=== PATIENT | male | born 1940 | race Caucasian/White ===

== ENCOUNTER 2023-09-12 16:46 | Inpatient (IN) | payer OTHER, SELFPAY ==
[2023-09-12] VITALS (8 sets, daily range): BP systolic 115–149; BP diastolic 72–91; BMI 25.3
--- NOTE | 2023-09-12 11:20 | ED.GENMED ---
History of Present Illness
<Oanh Burgos PA-C - Last Filed: 09/12/23 15:42>
General
Chief Complaint: Abdominal Symptoms
Source: patient
Exam Limitations: none
Time Seen by Provider: 09/12/23 11:07
Nursing documentation reviewed up to this point in time: agreed with
Travel History
Have you had any contact with someone who has COVID-19?: No
Do you have any symptoms of coronavirus? Fever > 100 degrees, chills, cough, shortness of breath, sore throat, loss of taste or smell, muscle aches, or headache?: No
History of Present Illness
History of Present Illness:
82-year-old male with past medical history of CAD, hypertension, diabetes presenting emergency department today with diffuse abdominal pain, nausea, vomiting for the past 4 days. Patient states that on Monday, he had food poisoning and ate
something that upset his stomach and he subsequently had persistent vomiting. Patient states that he thought would go away within the first 24 hours, however he woke up on Monday and his vomiting persisted but he did feel little bit better.
Patient states that he has been sleeping on somebody's symptoms are not been going away. Patient states that he is not able to eat anything without vomiting. Patient denies any chest pain, shortness of breath. Patient states that today, he feels
even better and did take some Pepto-Bismol to help with his abdominal pain. Patient denies any diarrhea, constipation. Patient denies any dysuria, back pain. Patient was sent here from PCP office after being evaluated and was sent for concerns of
tachycardia and EKG changes. Patient is also concerned about his abdomen being distended, he states that normally does not like this. He denies any past abdominal surgeries. Patient states that he does not know why he is here.
Past History
<Oanh Burgos PA-C - Last Filed: 09/12/23 15:42>
Past History
ED Past Medical History: HTN, MA (October of this year with cardiac catheterization.) and Other (Attention, glaucoma )
ED Past Surgical History: Other (vasectomy)
Social History
Tobacco: Smoker
Alcohol: None
Drug: None
Personal: Single
Living: alone
Employment: Retired
Family History
Family History: Early CAD (father--other RF (obese, tob, alcoholic))) and Other (Alcoholic father )
Review of Systems
<Oanh Burgos PA-C - Last Filed: 09/12/23 15:42>
Review of Systems
All Other Systems: ROS reviewed and negative except as documented in HPI and ROS
Phy Exam
<Oanh Burgos PA-C - Last Filed: 09/12/23 15:42>
Physical Exam
Physical Exam:
Vitals: Patient is tachycardic, otherwise vital signs are stable
General: Patient is well-appearing no acute distress
Skin: Warm and dry, no rashes or lesions
Head: Normocephalic, atraumatic
Cardiac: Patient has a tachycardic rate and irregular rhythm, no obvious murmurs heard. No tenderness palpation of the external chest wall.
Peripheral vascular: No lower extremity swelling, 2+ dorsalis pedis pulses bilaterally.
Pulm: Normal respiratory effort, no wheezes, rales, rhonchi
Abdomen: Abdomen is distended, non-tympanic to percussion, mild tenderness diffusely, normoactive bowel sounds.
Neuro: Patient AAOx3. CN II-XII intact. No focal neurologic deficits.
Course
<Oanh Burgos PA-C - Last Filed: 09/12/23 15:42>
Orders/Labs/Results
Orders:
Orders
09/12/23 11:08
Electrocardiogram (*1) Urgent
Reason for Study: Abdominal Pain
EKG- Treatment ONCE
IV Insert/Care/Rem.- Treatment PRN
09/12/23 11:25
Complete Blood Count/With Diff Urgent
Comprehensive Metabolic Panel Urgent
Lipase Urgent
Troponin I Urgent
09/12/23 11:38
0.9% Sodium Chloride 500 ml [Nss] 500 ml IV BOLUS
US Abdomen Complete/Upper Urgent
Comment:
Reason For Exam: upper abdominal pain and distension
09/12/23 13:26
Hida Scan [NM Hepatobiliary (hida)] Urgent
Comment:
Reason For Exam: Cholecystitis
09/12/23 15:36
Morphine Sulfate 2 mg .ROUTE .STK-MED ONE
Abnormal Lab Results
09/12/23
11:25
RBC 4.05 L 10^6/uL
(4.70-6.10)
MCV 100.0 H fL
(80.0-94.0)
MCH 33.6 H pg
(27.0-31.0)
MPV 11.4 H fL
(7.4-10.4)
Abs Immat Gran (auto) 0.1 H 10^3/uL
(0-0.05)
Absolute Neuts (auto) 7.7 H 10^3/uL
(1.4-6.5)
Absolute Lymphs (auto) 0.8 L 10^3/uL
(1.2-3.4)
Absolute Monos (auto) 0.8 H 10^3/uL
(0.1-0.6)
Neutrophils % 82.1 H %
(42.2-75.2)
Lymphocytes % 8.4 L %
(20.5-51.1)
Sodium 133 L mmol/L
(135-145)
BUN 24 H mg/dl
(9-20)
Glucose 175 H mg/dl
(70-99)
Total Bilirubin 3.7 H mg/dl
(0.2-1.3)
ALT 74 H U/L
(0-50)
Alkaline Phosphatase 151 H U/L
(38-126)
Troponin I 0.097 H* ng/ml
09/12/23 11:25
09/12/23 11:25
Vital Signs
Initial and Last Documented VS:
Initial Vital Signs
Temp Pulse Resp BP Pulse Ox
98.6 F 109 16 125/91 96
09/12/23 10:35 09/12/23 10:35 09/12/23 10:35 09/12/23 10:35 09/12/23 10:35
Last Documented Vital Signs
Temp Pulse Resp BP Pulse Ox
98.6 F 97 19 129/85 95
09/12/23 10:35 09/12/23 13:45 09/12/23 13:45 09/12/23 11:34 09/12/23 13:45
<Aubrey Emanuel MD - Last Filed: 09/12/23 16:14>
Orders/Labs/Results
Orders:
Orders
09/12/23 11:08
Electrocardiogram (*1) Urgent
Reason for Study: Abdominal Pain
EKG- Treatment ONCE
IV Insert/Care/Rem.- Treatment PRN
09/12/23 11:25
Complete Blood Count/With Diff Urgent
Comprehensive Metabolic Panel Urgent
Lipase Urgent
Troponin I Urgent
09/12/23 11:38
0.9% Sodium Chloride 500 ml [Nss] 500 ml IV BOLUS
US Abdomen Complete/Upper Urgent
Comment:
Reason For Exam: upper abdominal pain and distension
09/12/23 13:26
Hida Scan [NM Hepatobiliary (hida)] Urgent
Comment:
Reason For Exam: Cholecystitis
09/12/23 15:36
Morphine Sulfate 2 mg .ROUTE .STK-MED ONE
Abnormal Lab Results
09/12/23
11:25
RBC 4.05 L 10^6/uL
(4.70-6.10)
MCV 100.0 H fL
(80.0-94.0)
MCH 33.6 H pg
(27.0-31.0)
MPV 11.4 H fL
(7.4-10.4)
Abs Immat Gran (auto) 0.1 H 10^3/uL
(0-0.05)
Absolute Neuts (auto) 7.7 H 10^3/uL
(1.4-6.5)
Absolute Lymphs (auto) 0.8 L 10^3/uL
(1.2-3.4)
Absolute Monos (auto) 0.8 H 10^3/uL
(0.1-0.6)
Neutrophils % 82.1 H %
(42.2-75.2)
Lymphocytes % 8.4 L %
(20.5-51.1)
Sodium 133 L mmol/L
(135-145)
BUN 24 H mg/dl
(9-20)
Glucose 175 H mg/dl
(70-99)
Total Bilirubin 3.7 H mg/dl
(0.2-1.3)
ALT 74 H U/L
(0-50)
Alkaline Phosphatase 151 H U/L
(38-126)
Troponin I 0.097 H* ng/ml
09/12/23 11:25
09/12/23 11:25
Vital Signs
Initial and Last Documented VS:
Initial Vital Signs
Temp Pulse Resp BP Pulse Ox
98.6 F 109 16 125/91 96
09/12/23 10:35 09/12/23 10:35 09/12/23 10:35 09/12/23 10:35 09/12/23 10:35
Last Documented Vital Signs
Temp Pulse Resp BP Pulse Ox
98.6 F 97 19 129/85 95
09/12/23 10:35 09/12/23 13:45 09/12/23 13:45 09/12/23 11:34 09/12/23 13:45
<Oanh Burgos PA-C - Last Filed: 09/12/23 15:42>
MDM/Problems Addressed
Differential Diagnosis Includes:
Differentials include ACS, pancreatitis, small bowel obstruction, IBS, perforated viscus
MDM/Problems Addressed:
Abdominal pain
nausea and vomiting
Chronic conditions affecting care: DM, HTN and CAD
Acute Exacerbation and/or Progression of Chronic Illness: DM, HTN and CAD
<URIAH Layton Last Filed: 09/12/23 15:42>
*Pulse Oximetry
Patient hypoxic: no
*Critical Care Note
Total Time (30-74mins, 75-104mins- exclusive of procedures): Not Applicable
Data Reviewed
Review of Other/Old Records Reveals: Records (Reviewed ER physician documentation from 07/03/2022) and Discharge Summary (Reviewed discharge summary from 07/04/2022)
Source: patient and records
<URIAH Layton Last Filed: 09/12/23 15:42>
Patient Management
Escalation/DeEscalation of care consider admission/obs:
82-year-old male with past medical history of CAD, hypertension, diabetes presenting emergency department today with diffuse abdominal pain, nausea, vomiting for the past 4 days. Patient was sent here by PCP who was concerned about possible cardiac
causes to his symptoms. Here Emergency Department, patient is well-appearing and does not have significant tenderness on his abdominal exam. His troponin is elevated at 0.097 but his EKG today is largely unchanged from previous studies. His total
bilirubin is elevated and his ultrasound demonstrates patient was seen acute cholecystitis. General surgeon on site property manager may recommend IR cholecystostomy tube but patient must be cleared by cardiology and be fully risk assessed considering his troponin
elevation EKG changes. Patient will be admitted to hospitalist for risk assessment.
ED Attending Note
<Oanh Burgos PA-C - Last Filed: 09/12/23 15:42>
-
Portions of this chart may have been created with voice recognition software.� Occasional wrong word or��sound alike� substitutions may have occurred due to the inherent limitations of voice recognition software.
<Aubrey Emanuel MD - Last Filed: 09/12/23 16:14>
ED Attending Note
Patient seen and examined by attending physician: Yes
ED Attending Note:
Patient presents to ED secondary to persistent nausea and vomiting after consuming home-cooked cornbread 3 days ago. Denies fever or chills. Patient reports abdominal distention with mild discomfort. Patient has had normal bowel movements.
Denies trauma. Denies chest pain. Denies shortness of breath. Denies recent change in medications. Patient states that he had similar episode 2 years ago when he had 'food poisoning'.
Physical Exam
General: mild distress, not acutely ill. afebrile
Head: nc/at. eomi
Neck: supple. no meningeal signs.
Heart: s1/s2 regular rate and rhythm, systolic ejection murmur. equal radial pulses.
Lungs: no acute respiratory distress. clear bilaterally
Abdomen: normal bowel sounds. mild distention noted with mild upper abdominal tenderness to palpation.
Neuro: alert and oriented. no focal neurological deficits
Skin: no rash
Psychiatric: well kept. interactive and cooperative
Extremities: no edema. no calf tenderness.
Ultrasound report reviewed and discussed with Dr. Wright, general surgery.
Patient evaluated in ED by Dr. Wright who recommends patient be admitted to the hospital service for treatment, including potential cholecystostomy tube placement as well as cardiology evaluation.
Discharge Plan
Departure
Patient Disposition: Admit
Date of Disposition: 09/12/23
Time of Disposition: 14:23
Admit to: Med/Surg
Presentation/result/management discussed w/ accepting MD/DO: Hospitalist
Patient with high blood pressure during this ER visit?: Yes
Condition: Fair
Discharge Problem:
Acute cholecystitis
Prescriptions:
No Action
aspirin 81 MG tablet,delayed release (DR/EC)
81 mg PO DAILY
timolol maleate (PF) [Timoptic Ocudose (PF)] 1 EACH dropperette
1 drp BOTH EYES DAILY
losartan 50 mg Tablet
50 mg PO DAILY
atorvastatin 40 mg Tablet
40 mg PO DAILY
metformin 500 mg Tablet
500 mg PO TID
icosapent ethyl 1 gram Capsule
2 g PO BID
brinzolamide 1 % Drops,Suspension
1 drp BOTH EYES TID
bimatoprost 0.03 % Drops
1 drp BOTH EYES QPM
Rhopressa 0.02 % Drops
1 drp BOTH EYES QPM
metoprolol tartrate 25 MG tablet
12.5 mg PO BID Qty: 0 0RF
Theragen Tablet
1 tab PO DAILY
Referrals:
Taran Hair PA-C [Family Provider] -
Interventions
Interventions:
*Risk Screen - Suicide Last Done: 09/12/23 11:21
*General Assessment Last Done: 09/12/23 11:21
*Neglect/Abuse Screening Last Done: 09/12/23 11:21
ED- Fall Risk Assessment Last Done: 09/12/23 11:21
*ED COVID-19 Vaccine History Last Done: 09/12/23 11:21
KJ-Waqenj-Leyqyljzle Assessment Last Done: 09/12/23 11:21
Discharge Date and Time
Print Language: SPANISH
[2023-09-12 11:48] LABS: % Basophils 0.2 % (0-2); % Eosinophils 0.3 % (0-6); % Immature Granulocytes 0.5 % (0-0.5); % Lymphocytes 8.4 % (20.5-51.1); % Monocytes 8.5 % (1.7-9.3); % Neutrophils 82.1 % (42.2-75.2); Absolute Immature Granulocytes 0.1 10^3/uL (0-0.05); Absolute Lymphocytes 0.8 10^3/uL (1.2-3.4); Absolute Monocytes 0.8 10^3/uL (0.1-0.6); Absolute Neutrophils 7.7 10^3/uL (1.4-6.5); Hematocrit 40.5 % (39.0-52.0); Hemoglobin 13.6 g/dL (13.0-18.0); Mean Corp Hgb Conc. 33.6 g/dL (33.0-37.0); Mean Corpuscular Hgb 33.6 pg (27.0-31.0); Mean Platelet Volume 11.4 fL (7.4-10.4); Nucleated Red Blood Cells % 0 % (-); Platelet Count 177 10^3/uL (130-400); Red Blood Cell Count 4.05 10^6/uL (4.70-6.10); Red Cell Dist. Width 12.2 % (11.5-14.5); White Blood Cell Count 9.4 10^3/uL (4.8-10.8)
[2023-09-12] MEDS: NSS 500 IV (11:52)
[2023-09-12 12:12] LABS: ALT (SGPT) 74 U/L (0-50); AST (SGOT) 50 U/L (17-59); Albumin 3.6 g/dl (3.5-5.0); Alkaline Phosphatase 151 U/L (38-126); Blood Urea Nitrogen 24 mg/dl (9-20); Calcium 9.4 mg/dl (8.4-10.2); Carbon Dioxide 26 mmol/L (22-30); Chloride 99 mmol/L (98-107); Glucose 175 mg/dl (70-99); Lipase 77 U/L (23-300); Potassium 3.6 mmol/L (3.5-5.1); Sodium 133 mmol/L (135-145); Total Bilirubin 3.7 mg/dl (0.2-1.3); Total Protein 6.4 g/dl (6.3-8.2); eGFR > 60.00
[2023-09-12 12:19] LABS: Troponin I 0.097 ng/ml
--- NOTE | 2023-09-12 13:26 | CON.GS ---
Medical History
-
Chief Complaint: Abdominal pain
History of Present Illness:
Patient is a 82 yo M with a PMH of HTN, HLD, CAD s/p PCI with stent, (last TTE 2011, instructed to obtain update without follow-up), and NIDDM who presents to with approximately 5 to 7 days of persistent abdominal pain. Mr. Pastrana states
that he has had epigastric and RIGHT-sided abdominal pain for several days now. He attributed his symptoms to food poisoning as his symptoms occurred shortly after eating a meal (cannot remember exactly what he ate). He has had severe nausea and
vomiting associated with his abdominal pain. Symptoms have been persistent and worsened with each and every meal. He denies any fevers or chills. He denies jaundice, pale stools, or tea colored urine. He initially presented to his PCP who noted
EKG changes and an elevated troponin. History somewhat limited, but patient reports a few prior attacks of 'food poisoning' over the years. He currently endorses some mild shortness of breath, but denies any significant chest pain. Of note, he
follows with Dr. Murry from Cardiology. He was last evaluated in 2021, he has been noted to be non-compliant with follow-up and testing.
Past Medical History
Past Medical History: CAD, HTN and Hypercholesterolemia
Past Surgical History: Urological (Vasectomy)
Social History
Tobacco: Former Smoker
Alcohol: Daily
Drug: None
Living: Alone
Family History
Family History: Reviewed & Noncontributory
Allergies / Home Medications
Allergy/AdvReac Type Severity Reaction Status Date / Time
Penicillins Allergy Swelling Verified 07/03/22 20:11
�Medication �Instructions �Recorded �Confirmed �Type
aspirin 81 mg tablet,delayed 81 mg PO DAILY Blood clot 10/11/10 09/12/23 History
release prevention/tx
timolol maleate (PF) 0.5 % eye 1 drp BOTH EYES DAILY Eye condition 05/13/11 09/12/23 History
drops in a dropperette (Timoptic
Ocudose (PF))
atorvastatin 40 mg tablet 40 mg PO DAILY High cholesterol 07/03/22 09/12/23 History
bimatoprost 0.03 % eye drops 1 drp BOTH EYES QPM Eye condition 07/03/22 09/12/23 History
brinzolamide 1 % eye 1 drp BOTH EYES TID Eye condition 07/03/22 09/12/23 History
drops,suspension
icosapent ethyl 1 gram capsule 2 g PO BID High cholesterol 07/03/22 09/12/23 History
losartan 50 mg tablet 50 mg PO DAILY Blood pressure 07/03/22 09/12/23 History
metformin 500 mg tablet 500 mg PO TID Diabetes 07/03/22 09/12/23 History
netarsudil 0.02 % eye drops 1 drp BOTH EYES QPM Eye condition 07/03/22 09/12/23 History
(Rhopressa)
metoprolol tartrate 25 mg tablet 12.5 mg (1/2 x 25 mg) PO BID Blood 07/04/22 09/12/23 Rx
pressure #0 tabs
therapeutic multivitamin 1 tab PO DAILY 09/12/23 09/12/23 History
Review of Systems
-
A 10 point review of systems was completed, and was negative except as per HPI.
Physical Exam
Vital Signs
Temp Pulse Resp BP Pulse Ox
98.6 F 111 24 129/85 95
09/12/23 10:35 09/12/23 11:45 09/12/23 11:45 09/12/23 11:34 09/12/23 11:45
09/11/23 09/12/23 09/13/23
06:59 06:59 06:59
Actual Weight 77 kg
Lab Results
09/12/23 11:25
09/12/23 11:25
WBC 9.4 10^3/uL (4.8-10.8) 09/12/23 11:25
Hgb 13.6 g/dL (13.0-18.0) 09/12/23 11:25
Hct 40.5 % (39.0-52.0) 09/12/23 11:25
Plt Count 177 10^3/uL (130-400) 09/12/23 11:25
Abs Immat Gran (auto) 0.1 10^3/uL (0-0.05) H 09/12/23 11:25
Neutrophils % 82.1 % (42.2-75.2) H 09/12/23 11:25
Physical Exam
General: Well Developed, Well Nourished and Sweats
HEENT: Normocephalic and Scleral Icterus
Respiratory: Non Labored Respirations
Cardiac: Irregular Rhythm
GI: Soft, Tender (RUQ, positive Bourgeois's sign), Distended, Obese and Other (Non-peritoneal)
Musculoskeletal: No Edema
Skin: Warm and Dry
Neuro: Nonfocal/Grossly Intact
Data Reviewed
-
Ultrasound: Image Personally Visualized and interpreted and Report Reviewed by me
Labs: Labs Reviewed by me
Old Records: Reviewed
Assessment / Plan
-
Patient is an 82 yo M p/w severe acute cholecystitis over the past several days
The natural history and pathophysiology of biliary and stone disease was previously discussed. Anatomy and workup including labs and imaging were reviewed. Elevated troponin with EKG changes concerning for a possible new infarct. Recommend
Cardiology consultation for risk assessment and management of possible CT. He also has aortic stenosis which has been poorly defined due to noncompliance with follow-up TTE. Plan for HIDA scan, while awaiting risk assessment and clearance, to
confirm diagnosis and absolute need for addressing his gallbladder (very likely). Pending these findings and Cardiology assessment would likely recommend IR cholecystostomy tube for management of his gallbladder given increased operative risks
(delayed presentation and cardiac risks). All questions answered.
-- HIDA scan, pending findings IR cholecystectomy tube
-- Cardiology consultation, risk assessment and management
-- NPO
-- Abx: Levaquin and Flagyl
--- NOTE | 2023-09-12 15:51 | PTCARENOTE ---
requested Morphine IV by remelt worker. Order checked. Patient identified in NM room. Allergy confirmed. left AC PIV flushed and patent. Vitals checked. @1543 BP 135/73, HR 100 RR 16 SPO2 94% RA. Morphine 2 mg IV given per order. Tolerated
well. Post Morphine Vitals @ 1549 BP 133/72 HR 97 RR 15 SPO2 96%RA.
--- NOTE | 2023-09-12 17:03 | HPS.HSE ---
Family Physician
-
Family Physician: Taran Hair PA-C
Chief Complaint
-
Abdominal pain
History of Present Illness
Patient presents with abdominal pain which started more than 5 days ago.
It started after a meal. He thought he got food poisoning. He had multiple episodes of vomiting. The abdominal pain was in the right upper quadrant and he could feel tenderness there. The pain once occurred stayed on continuously every day. He
went to see PCP because of continued abdominal pain. PCP referred him to the hospital.
No prior history of gallbladder disease. His current ultrasound shows cholecystitis.
No fever or chills at home.
Noted cardiac disease without recent changes in medication or any recent chest pains.
Medical History
Past Medical History
Past Medical History: Reports CAD, HTN and Hypercholesterolemia
Past Surgical History: Reports Cardiac (Prior coronary stent)
Social History
Tobacco: Former Smoker
Alcohol: None
Drug: None
Living: Alone
Family History
Family History: Not pertinent
Allergies / Home Medications
Allergies reflects when Allergies were last updated in [facility].
Home Medications with original date entered in [facility]
Allergy/Medication List:
Allergies
Allergy/AdvReac Type Severity Reaction Status Date / Time
Penicillins Allergy Swelling Verified 07/03/22 20:11
Home Medications
aspirin 81 mg tablet,delayed release 81 mg PO DAILY Blood clot prevention/tx 10/11/10
timolol maleate (PF) 0.5 % eye drops in a dropperette (Timoptic Ocudose (PF)) 1 drp BOTH EYES DAILY Eye condition 05/13/11
atorvastatin 40 mg tablet 40 mg PO DAILY High cholesterol 07/03/22
bimatoprost 0.03 % eye drops 1 drp BOTH EYES QPM Eye condition 07/03/22
brinzolamide 1 % eye drops,suspension 1 drp BOTH EYES TID Eye condition 07/03/22
icosapent ethyl 1 gram capsule 2 g PO BID High cholesterol 07/03/22
losartan 50 mg tablet 50 mg PO DAILY Blood pressure 07/03/22
metformin 500 mg tablet 500 mg PO TID Diabetes 07/03/22
netarsudil 0.02 % eye drops (Rhopressa) 1 drp BOTH EYES QPM Eye condition 07/03/22
metoprolol tartrate 25 mg tablet 12.5 mg (1/2 x 25 mg) PO BID Blood pressure #0 tabs 07/04/22
therapeutic multivitamin 1 tab PO DAILY Supplement 09/12/23
Review of Systems
-
A 12 point ROS was completed and negative except as noted: Yes
Physical Exam
Vital Signs
Vital Signs
Temp Pulse Resp BP Pulse Ox
98.6 F 114 19 149/83 98
09/12/23 10:35 09/12/23 16:50 09/12/23 16:50 09/12/23 16:50 09/12/23 16:53
Physical Exam
General: No Apparent Distress
HEENT: Moist mucous membranes
Respiratory: Clear
Cardiac: S1/S2 and Regular Rhythm
GI: Soft, Non Distended, Normal Bowel Sounds and Tender (Right upper quadrant tenderness; Bourgeois sign positive)
Neuro: AO x 3
Psych: Calm
Laboratory Results
-
09/12/23 11:25
09/12/23 11:25
Laboratory Results
Total Bilirubin 3.7 mg/dl (0.2-1.3) H 09/12/23 11:25
AST 50 U/L (17-59) 09/12/23 11:25
ALT 74 U/L (0-50) H 09/12/23 11:25
Alkaline Phosphatase 151 U/L (38-126) H 09/12/23 11:25
Troponin I 0.097 ng/ml H* 09/12/23 11:25
Lipase 77 U/L (23-300) 09/12/23 11:25
Data Reviewed
-
Ultrasound: Report Reviewed by me (Ultrasound of abdomen)
Lab Data: Labs Reviewed by me
Impression/Plan
-
Acute cholecystitis-afebrile, nontoxic, no leukocytosis. Abnormal LFTs with total bili of 3.7 and ALT and alkaline phosphatase elevation noted. Ultrasound shows cholelithiasis with thickened gallbladder wall and pericholecystic edema suggesting
cholecystitis. No common or intrahepatic ductal dilatation noted. HIDA scan shows nonfilling of the gallbladder suggestive of acute cholecystitis. No evidence of complete common bile duct duct obstruction noted. Keep him n.p.o. Seen by surgery.
Await further surgical recommendations.
Follow cholestasis and if persistent elevation consider an MRCP to rule out any ductal stone.
Preop cardiac eval-consulted cardiology.
CAD s/p PCI-continue with his home medication. Hold statins.
Hypertension-continue beta-jacques but hold losartan if there is any plan for surgery.
Full code
--- NOTE | 2023-09-12 17:08 | CON.CAR ---
Addendum entered and electronically signed by Mateo Marti DO 09/12/23 21:49:
I saw and examined the patient.
The Hemmer Chainstitch's note was reviewed and I agree with the note.
Comment:
Plan:
Asked to eval pt for preop risk assessment.
Trend troponins until they peak
Check echo
Monitor tele and check EKG as ectopy noted on tele.
Continue to eval surgical risk
It appears that surgery is consider a tube drain over surgery. Also await further input from surgery.
Original Note:
Consultation
Consultation Request
Date/Time Consultation Performed: 09/12/23
Requesting Provider: Dr. Wright
Performing Provider: Lucita Caldwell PA-C for Dr. Marti
Reason for Consultation: CP, elevated troponin
Medical History
-
Chief Complaint: N/V/abd pain
History of Present Illness:
Patient is an 82-year-old male with past medical history of NSTEMI in 2010 status post MAU to first diagonal, OM 3, aortic sclerosis, hypertension, history of TIA, diabetes, hyperlipidemia who presents to [facility] due to complaints of
nausea/vomiting/abdominal pain. He states on Monday he may have cornbread. While eating it he noted it was runny in the middle, however continued to eat it. He went to bed around 6 PM on Monday. He states he tossed and turned until midnight,
and vomited multiple times. He reports he felt hot and then had chills. He also had several episodes of diarrhea. He started with chest discomfort, and about after an hour it migrated downward to his epigastrium and he had severe abdominal pain
across his entire abdomen. He continued with vomiting until yesterday. He states he was feeling better and went to see his primary care physician for appointment he had previously scheduled. Due to his symptoms PCP referred him to the emergency
room for further evaluation. Troponin elevated at 0.097. EKG with bifascicular block. abdominal ultrasound with cholelithiasis and thickened gallbladder wall with pericholecystic edema suggesting cholecystitis. He reports he does not think
anything is wrong with his gallbladder as he has food poisoning, which she had a similar episode 2 years ago. Cardiology consulted for evaluation of elevated troponin
PMH:
CAD with prior NSTEMI in 2010 status post MAU to first diagonal, OM 3
Aortic sclerosis
Hypertension
Diabetes
Hyperlipidemia
History of TIA
Past Medical History
Past Medical History: Other (in HPI)
Social History
Tobacco: Former Smoker
Alcohol: Occasional
Living: Alone
Allergies / Home Medications
Allergy/AdvReac Type Severity Reaction Status Date / Time
Penicillins Allergy Swelling Verified 07/03/22 20:11
�Medication �Instructions �Recorded �Confirmed �Type
aspirin 81 mg tablet,delayed 81 mg PO DAILY Blood clot 10/11/10 09/12/23 History
release prevention/tx
timolol maleate (PF) 0.5 % eye 1 drp BOTH EYES DAILY Eye condition 05/13/11 09/12/23 History
drops in a dropperette (Timoptic
Ocudose (PF))
atorvastatin 40 mg tablet 40 mg PO DAILY High cholesterol 07/03/22 09/12/23 History
bimatoprost 0.03 % eye drops 1 drp BOTH EYES QPM Eye condition 07/03/22 09/12/23 History
brinzolamide 1 % eye 1 drp BOTH EYES TID Eye condition 07/03/22 09/12/23 History
drops,suspension
icosapent ethyl 1 gram capsule 2 g PO BID High cholesterol 07/03/22 09/12/23 History
losartan 50 mg tablet 50 mg PO DAILY Blood pressure 07/03/22 09/12/23 History
metformin 500 mg tablet 500 mg PO TID Diabetes 07/03/22 09/12/23 History
netarsudil 0.02 % eye drops 1 drp BOTH EYES QPM Eye condition 07/03/22 09/12/23 History
(Rhopressa)
metoprolol tartrate 25 mg tablet 12.5 mg (1/2 x 25 mg) PO BID Blood 07/04/22 09/12/23 Rx
pressure #0 tabs
therapeutic multivitamin 1 tab PO DAILY Supplement 09/12/23 09/12/23 History
Review of Systems
-
History Source: Patient
All other systems: Negative unless noted
Physical Exam
Vital Signs
Temp Pulse Resp BP Pulse Ox
98.6 F 114 19 149/83 98
09/12/23 10:35 09/12/23 16:50 09/12/23 16:50 09/12/23 16:50 09/12/23 16:53
Lab Results
09/12/23 11:25
09/12/23 11:25
Troponin I 0.097 ng/ml H* 09/12/23 11:25
Physical Exam
General: No Apparent Distress and Comfortable
HEENT: Normocephalic, Anicteric and Moist Mucous Membranes
Respiratory: Clear and Non Labored Respirations
Cardiac: S1/S2 and Irregular Rhythm
GI: Soft and Normal Bowel Sounds
Musculoskeletal: No Clubbing, No Cyanosis and No Edema
Skin: Warm and Dry
Neuro: AO x 3
Impression / Plan
-
Primary Bid Clerk: Dr. Murry
Assessment:
Presentation with N/V, abd pain
Concern for acute cholecystitis
Elevated troponin
Concern for new paroxysmal atrial fibrillation by tele in ER
Hyponatremia
LFT elevation
CAD with prior NSTEMI in 2010 status post MAU to first diagonal, OM 3
Aortic sclerosis
Hypertension
Diabetes
Hyperlipidemia
History of TIA
ECHO 06/2022: EF 60 to 65%, no regional wall motion abnormalities noted, mild concentric LVH, trace TR, PAP 20 to 25 mmHg
Plan:
-Patient presents with several days of nausea vomiting and diffuse abdominal pain. By abdominal ultrasound and HIDA scan there is evidence of acute cholecystitis. General surgery is following. Patient remains n.p.o. at this time as may require
cholecystostomy tube versus cholecystectomy
-Cardiology consulted for clearance as patient with elevated troponin. He does report some chest discomfort on Friday 09/08 prior to it migrating down into his epigastrium.
-EKG on arrival sinus rhythm with known bifascicular block. appears stable compared to prior EKG.
-on tele in ER during my interview, patient rhythm noted to be irregular. for repeat EKG as concern for afib. follow on tele
-trop 0.97. no present CP. trend trop to peak
-last echo from 2022 with results as above. will need repeat echo
-last ischemic evaluation appears to have been in 2011.
-continue OP aspirin and po lopressor 12.5mg BID
-d/w hospitalist. TT to gen surgery
Data Reviewed
-
EKG: Tracing Personally Visualized and interpreted
Ultrasound: Report Reviewed by me
Medical Tests (Nuc Med, Echo etc): Report Reviewed by me
Labs: Labs Reviewed by me
Old Records: Reviewed
[2023-09-12 17:25] LABS: Troponin I 0.069 ng/ml
--- NOTE | 2023-09-12 18:50 | PTCARENOTE ---
Pt admitted to [facility] from ER via stretcher, accompanied by ER staff. Pt AAO x3, SPENCER; ambulatory to bed with assist x1, sl unsteady with ambulation; fall prec initiated. VSS. On room air- pulseox 97%. Abd soft, rounded, no c/o abd discomfort; pt
c/o 'I'n do hungry'; aware of NPO status. Pt DTV; urinal at bedside. [facility], currently resting in bed. Will continue to monitor.
[2023-09-12] MEDS: NSS 1000 IV (20:23)
[2023-09-12] MEDS: LOVENOX 40 MG SC (20:24)
[2023-09-12] MEDS: FLAGYL 500 MG 100 IV (20:24)
[2023-09-12] MEDS: LEVAQUIN 100 IV (21:44)
[2023-09-12] MEDS: LOPRESSOR 12.5 MG PO (21:47)
[2023-09-12] MEDS: AZOPT 1% OPHTHALMIC SUSPENSION 1 DROP BOTH EYES (21:47)
[2023-09-12] MEDS: TIMOPTIC 0.5% OPHTHALMIC SOLUTION BOTH EYES (21:51)
[2023-09-13 03:50] VITALS: BP 115/67
[2023-09-13] MEDS: FLAGYL 500 MG 100 IV ×2 (04:07→11:51)
[2023-09-13 07:29] LABS: Glucose - Point of Care 128 mg/dl (70-99)
[2023-09-13 07:45] VITALS: BP 152/87
[2023-09-13] MEDS: LOPRESSOR 12.5 MG PO (08:55)
[2023-09-13] MEDS: ASPIR LOW (ENTERIC COATED) 81 MG PO (08:55)
[2023-09-13] MEDS: AZOPT 1% OPHTHALMIC SUSPENSION BOTH EYES ×2 (08:56→09:02)
[2023-09-13] MEDS: TIMOPTIC 0.5% OPHTHALMIC SOLUTION 1 DROP BOTH EYES (08:57)
--- NOTE | 2023-09-13 09:48 | W.PN.GS2 ---
Today's Communication / Plan
-
PO challenge
Assessment / Plan
-
82M with acute onset abd pain a/w n/v, likely ACC vs acute on chronic
AFVSS, feels 'back to normal,' has no pain, no nausea, is hungry and asking to eat
Labs today pending, yesterday no leukocytosis, LFTs were elevated
US with stones, 7.5mm GBWT, PC present, no ductal dilation
HIDA with non-vis of GB c/w cystic duct obstruction, or possible represents CCC
Plan:
Considering he is essentially clinically normal today, will PO challenge
If he has no issues with PO intake, would give strong consideration to DC home with 7 days PO abx and prompt outpt f/u to discuss elective CCY
If he fails PO challenge, would proceed with IR nishi drain
Cont IV abx for now
DVT ppx
Ambulate
Subjective Data
-
Date of Service: September 13, 2023
AFVSS, denies pain, denies n/v
Objective Data
-
Intake and Output
09/12/23 09/13/23 09/14/23
06:59 06:59 06:59
Intake Total 1300 / 1300
Balance 1300 / 1300
Intake:
IV fluids (Total) 1000 / 1000
IV piggybacks 300 / 300
Vital Signs
Temp Pulse Resp BP Pulse Ox
98.1 F 96 16 152/87 95
09/13/23 07:45 09/13/23 08:55 09/13/23 07:45 09/13/23 08:55 09/13/23 08:31
Calcium 9.4 mg/dl (8.4-10.2) 09/12/23 11:25
Total Bilirubin 3.7 mg/dl (0.2-1.3) H 09/12/23 11:25
AST 50 U/L (17-59) 09/12/23 11:25
ALT 74 U/L (0-50) H 09/12/23 11:25
Alkaline Phosphatase 151 U/L (38-126) H 09/12/23 11:25
Total Protein 6.4 g/dl (6.3-8.2) 09/12/23 11:25
Albumin 3.6 g/dl (3.5-5.0) 09/12/23 11:25
Physical Exam
-
Gen: NAD
Abd: soft, mild ttp with very deep ttp to RUQ
[2023-09-13 10:07] LABS: Hematocrit 36.6 % (39.0-52.0); Hemoglobin 12.6 g/dL (13.0-18.0); Mean Corp Hgb Conc. 34.4 g/dL (33.0-37.0); Mean Corpuscular Hgb 34.1 pg (27.0-31.0); Mean Corpuscular Volume 99.2 fL (80.0-94.0); Mean Platelet Volume 10.7 fL (7.4-10.4); Platelet Count 155 10^3/uL (130-400); Red Blood Cell Count 3.69 10^6/uL (4.70-6.10); Red Cell Dist. Width 12.3 % (11.5-14.5)
[2023-09-13 10:16] LABS: INR 1.18; PT 15.1 Sec (11.4-14.6)
[2023-09-13 10:25] LABS: ALT (SGPT) 63 U/L (0-50); AST (SGOT) 56 U/L (17-59); Albumin 3.2 g/dl (3.5-5.0); Alkaline Phosphatase 179 U/L (38-126); Blood Urea Nitrogen 18 mg/dl (9-20); Calcium 8.8 mg/dl (8.4-10.2); Carbon Dioxide 23 mmol/L (22-30); Chloride 104 mmol/L (98-107); Direct Bilirubin 1.3 mg/dl (0.0-0.4); Estimated Creatinine Clearance 60 ml/min; Glucose 135 mg/dl (70-99); Potassium 3.5 mmol/L (3.5-5.1); Sodium 134 mmol/L (135-145); Total Bilirubin 2.1 mg/dl (0.2-1.3); Total Protein 5.7 g/dl (6.3-8.2); eGFR > 60.00
--- NOTE | 2023-09-13 10:35 | W.PN.CARDCBS ---
Today's Communication / Plan
-
TTE with preserved LV function and no obvious segmental wall motion abnormalities
Continue aspirin and lopressor
Consider outpatient ischemic evaluation with stress testing once recovered from GI illness given elevated troponin
Impression / Plan
-
Primary Level Vial Inspector: Dr. Murry
Assessment:
Presentation with N/V, abd pain
Concern for acute cholecystitis
Elevated troponin
Concern for new paroxysmal atrial fibrillation by tele in ER
Hyponatremia
LFT elevation
CAD with prior NSTEMI in 2010 status post MAU to first diagonal, OM 3
Aortic sclerosis
Hypertension
Diabetes
Hyperlipidemia
History of TIA
ECHO 06/2022: EF 60 to 65%, no regional wall motion abnormalities noted, mild concentric LVH, trace TR, PAP 20 to 25 mmHg
Plan:
-Patient presents with several days of nausea vomiting and diffuse abdominal pain. By abdominal ultrasound and HIDA scan there is evidence of acute cholecystitis. General surgery is following, ongoing discussion re: abx vs cholecystostomy tube vs
cholecystectomy
-Cardiology consulted for pre-operative CV risk stratification
-Initial troponin elevated to 0.97 and down trended. Currently chest pain free and tells me symptoms proceeding hospitalization were most so GI in nature.
-EKG is not overtly ischemic appearing and seems to be unchanged from prior tracings
-TTE with preserved LV function and no obvious segmental wall motion abnormalities
-Give history of CAD patient is at elevated but not prohibitive risk to proceed with surgery
-Suspect non-ischemic myocardial injury troponin elevation in the setting of acute cholecystitis
-Continue OP aspirin and po lopressor 12.5 mg BID
-Consider outpatient ischemic evaluation with stress testing once recovered from GI illness
-Frequent PACs seen on my review of tele, but no AFib seen
-Cont to monitor on tele
Progress Note - Level Vial Inspector
Subjective
Date of Service: September 13, 2023
NAOE. Resting comfortably this AM. No further abd pain. Tells me he has not had chest pain or chest discomfort and symptoms were GI in nature.
Objective
Labs:
09/13/23 09:48
09/13/23 09:48
Labs
Hgb 12.6 g/dL (13.0-18.0) L 09/13/23 09:48
Hct 36.6 % (39.0-52.0) L 09/13/23 09:48
Plt Count 155 10^3/uL (130-400) 09/13/23 09:48
PT 15.1 Sec (11.4-14.6) H 09/13/23 09:48
INR 1.18 09/13/23 09:48
Sodium 134 mmol/L (135-145) L 09/13/23 09:48
Potassium 3.5 mmol/L (3.5-5.1) 09/13/23 09:48
BUN 18 mg/dl (9-20) 09/13/23 09:48
Creatinine 0.9 mg/dL (0.7-1.3) 09/13/23 09:48
Glucose 135 mg/dl (70-99) H 09/13/23 09:48
Troponins
09/12/23 09/12/23
11:25 16:48
Troponin I 0.097 H* 0.069 H* D
Vital Signs and I&O:
Vital Signs
Temp Pulse Resp BP Pulse Ox
98.1 F 96 16 152/87 95
09/13/23 07:45 09/13/23 08:55 09/13/23 07:45 09/13/23 08:55 09/13/23 08:31
Vital Signs
Temp Pulse Resp BP Pulse Ox
98.1 F 96 16 152/87 95
09/13/23 07:45 09/13/23 08:55 09/13/23 07:45 09/13/23 08:55 09/13/23 08:31
Intake & Output
09/11/23 09/12/23 09/13/23 09/14/23
06:59 06:59 06:59 06:59
Intake Total 1300 / 1300
Balance 1300 / 1300
Physical Exam
Physical Exam
Gen: NAD, AAOx3
HEENT: NC/AT, sclera anicteric
Neck: No JVD
CV: RRR, NL s1/s2, no M/R/G
Lungs: CTAB
Abd: S/ND
Ext: No LE edema
Skin: Warm, dry
Neuro: Non-focal
[2023-09-13 11:00] VITALS: BP 138/79
[2023-09-13] MEDS: FLUSH (NSS) 1 FLUSH IV (11:51)
[2023-09-13] MEDS: NSS IV (12:03)
[2023-09-13] MEDS: AZOPT 1% OPHTHALMIC SUSPENSION 1 DROP BOTH EYES (12:12)
[2023-09-13 12:34] LABS: Glucose - Point of Care 195 mg/dl (70-99)
--- NOTE | 2023-09-13 14:14 | CM ---
general production manager reviewed patient's chart and met with patient and patient is for possible discharge today, patient lives alone in an apartment with steps to enter, patient is independent with adl's and ambulation, no dme, patient has a prescription
plan and uses [facility] pharmacy.
PCP: Dr. Hair
Plan; Home when stable, no needs.
--- NOTE | 2023-09-13 14:20 | W.DS.TRANS ---
DC Summary - Tube Drawer
-
Discharge Instructions:
Discharge Diagnosis/Procedures Acute cholecystitis
Diet Low Cholesterol,Low Fat,2 Gram Sodium
Activity As tolerated
Instructions:
Stand-Alone Forms:
Changes to Home Medications: No
Discharge Medications:
DC Medications w/original date entered in [employer]
aspirin 81 mg tablet,delayed release 81 mg PO DAILY Blood clot prevention/tx 10/11/10
timolol maleate (PF) 0.5 % eye drops in a dropperette (Timoptic Ocudose (PF)) 1 drp BOTH EYES DAILY Eye condition 05/13/11
atorvastatin 40 mg tablet 40 mg PO DAILY High cholesterol 07/03/22
bimatoprost 0.03 % eye drops 1 drp BOTH EYES QPM Eye condition 07/03/22
brinzolamide 1 % eye drops,suspension 1 drp BOTH EYES TID Eye condition 07/03/22
icosapent ethyl 1 gram capsule 2 g PO BID High cholesterol 07/03/22
losartan 50 mg tablet 50 mg PO DAILY Blood pressure 07/03/22
metformin 500 mg tablet 500 mg PO TID Diabetes 07/03/22
netarsudil 0.02 % eye drops (Rhopressa) 1 drp BOTH EYES QPM Eye condition 07/03/22
metoprolol tartrate 25 mg tablet 12.5 mg (1/2 x 25 mg) PO BID Blood pressure #0 tabs 07/04/22
therapeutic multivitamin 1 tab PO DAILY Supplement 09/12/23
levofloxacin 500 mg tablet 500 mg PO DAILY 7 days #7 tabs 09/13/23
metronidazole 500 mg tablet 500 mg PO TID #20 tabs 09/13/23
Home Medication Changes
Pending Results: No
Additional Pending Results:
Physical exam:
General: Awake, alert and oriented x3, not in distress and holds appropriate conversation.
HEENT: No active discharge, ecchymosis or bruising, moist lips, tongue and mucous membrane.
Eyes: No discharge or red conjunctiva, no nystagmus, pupils are reactive and equal
Neck:Supple, no JVD no bruit no goiter.
Respiratory: Normal AP contour and diameter, normal chest wall movement, normal respiratory effort, no respiratory distress,
Lungs: Good air entry bilaterally, no wheezing or rhonchi, no rales or crackles
Heart: S1, S2 regular, normal rate, no added sound.
Gastrointestinal: Positive bowel sounds, soft, nontender, no guarding or rigidity or organomegaly
Musculoskeletal: , no chest wall abnormality or tenderness. All joints and extremities have good range of motion, no muscle tenderness or any joint swelling or tenderness.
Extremities: No pitting edema, good peripheral pulses, good range of motion
Skin: Warm and dry, no ulceration, normal color.
Neurological: Awake, alert and oriented x3, cranial nerve II-XII grossly intact, speech clear and comprehensive, good muscle tone, normal sensory and motor function
Psychiatric: Normal mood, normal thought and judgment, normal affect, to
Condition on discharge: Awake, alert and oriented x3, answer question properly, able to make own decision and take care of activities of daily living, speech clear and comprehensive, continent of the bowel and bladder, ambulate without assistant offset press operator,
goes home where lives with the family independently.
--- NOTE | 2023-09-14 08:48 | W.DCSUMMARY ---
Discharge Summary
Discharge Data
Date of Admission: 09/12/23
Date of Discharge: 09/13/23
-
Pending Results: No
Hospital Course
Discharging Physician : Dr. Toshia Madera
Disposition :
Primary care physician :
Principal Discharge diagnosis :
1. Acute cholecystitis
2. Elevated troponin likely secondary to demand ischemia seen by cardiology does not think this is cardiac related
3. Mild mitral tissue
4. History of coronary artery disease status PCI
5. Glaucoma
6. Hypertension
7. Diabetes mellitus
Chronic Discharge diagnosis :
History of present illness:
Patient presents with abdominal pain which started more than 5 days ago.
It started after a meal. He thought he got food poisoning. He had multiple episodes of vomiting. The abdominal pain was in the right upper quadrant and he could feel tenderness there. The pain once occurred stayed on continuously every day. He
went to see PCP because of continued abdominal pain. PCP referred him to the hospital.
No prior history of gallbladder disease. His current ultrasound shows cholecystitis.
No fever or chills at home.
Hospital Course :
So patient admitted for abdominal pain was concerned and workup showed acute cholecystitis, seen by surgery they recommended n.p.o. and reevaluate next morning which patient have no symptoms and his blood workup showed much improved.
Seen by surgery again and they recommended patient can have low-fat diet and she has no symptoms then could be discharged home and have outpatient follow-up within a week with surgery for evaluation of outpatient cholecystectomy if develops symptoms
again after eating then they recommended IR for cholecystostomy tube.
Patient ate and had no any symptoms and kept in the hospital 2 hours after his meal no any other complaint or pain or discomfort or fever or nausea or vomiting came back. Therefore patient was cleared by surgery for discharge with oral antibiotic
with Levaquin and Flagyl for 7 days as he is allergic to penicillin. And recommended to continue his home medication and follow-up with surgery.
His condition discussed with surgery
Patient encouraged to encourage oral hydration also side effect of the antibiotic explained to him in detail and have yogurt daily while on antibiotic.
Advised about return to the hospital if symptoms transfer or even worsening.
Changes to Home Medications: No
Discharge Medications:
DC Medications w/original date entered in [employer]
aspirin 81 mg tablet,delayed release 81 mg PO DAILY Blood clot prevention/tx 10/11/10
timolol maleate (PF) 0.5 % eye drops in a dropperette (Timoptic Ocudose (PF)) 1 drp BOTH EYES DAILY Eye condition 05/13/11
atorvastatin 40 mg tablet 40 mg PO DAILY High cholesterol 07/03/22
bimatoprost 0.03 % eye drops 1 drp BOTH EYES QPM Eye condition 07/03/22
brinzolamide 1 % eye drops,suspension 1 drp BOTH EYES TID Eye condition 07/03/22
icosapent ethyl 1 gram capsule 2 g PO BID High cholesterol 07/03/22
losartan 50 mg tablet 50 mg PO DAILY Blood pressure 07/03/22
metformin 500 mg tablet 500 mg PO TID Diabetes 07/03/22
netarsudil 0.02 % eye drops (Rhopressa) 1 drp BOTH EYES QPM Eye condition 07/03/22
metoprolol tartrate 25 mg tablet 12.5 mg (1/2 x 25 mg) PO BID Blood pressure #0 tabs 07/04/22
therapeutic multivitamin 1 tab PO DAILY Supplement 09/12/23
levofloxacin 500 mg tablet 500 mg PO DAILY 7 days #7 tabs 09/13/23
metronidazole 500 mg tablet 500 mg PO TID #20 tabs 09/13/23
Home Medication Changes
Pending Results: No
Additional Pending Results:
Physical exam:
General: Awake, alert and oriented x3, not in distress and holds appropriate conversation.
HEENT: No active discharge, ecchymosis or bruising, moist lips, tongue and mucous membrane.
Eyes: No discharge or red conjunctiva, no nystagmus, pupils are reactive and equal
Neck:Supple, no JVD no bruit no goiter.
Respiratory: Normal AP contour and diameter, normal chest wall movement, normal respiratory effort, no respiratory distress,
Lungs: Good air entry bilaterally, no wheezing or rhonchi, no rales or crackles
Heart: S1, S2 regular, normal rate, no added sound.
Gastrointestinal: Positive bowel sounds, soft, nontender, no guarding or rigidity or organomegaly
Musculoskeletal: , no chest wall abnormality or tenderness. All joints and extremities have good range of motion, no muscle tenderness or any joint swelling or tenderness.
Extremities: No pitting edema, good peripheral pulses, good range of motion
Skin: Warm and dry, no ulceration, normal color.
Neurological: Awake, alert and oriented x3, cranial nerve II-XII grossly intact, speech clear and comprehensive, good muscle tone, normal sensory and motor function
Psychiatric: Normal mood, normal thought and judgment, normal affect, to
Condition on discharge: Awake, alert and oriented x3, answer question properly, able to make own decision and take care of activities of daily living, speech clear and comprehensive, continent of the bowel and bladder, ambulate without bindery library technical assistant,
goes home where lives with the family independently.
Discharge Plan
-
Patient Disposition: Home (Routine Discharge)
Discharge Diagnosis/Procedures: Acute cholecystitis
Condition: Good
Diet: Low Fat, Low Cholesterol and 2 Gram Sodium
Activity: As tolerated
Activity Restrictions/Additional Instructions:
Consider outpatient ischemic evaluation with stress testing once recovered from GI illness given elevated troponin. Therefore need to follow-up with a casino worker.
Follow-up with technical sales director within 7-day
Return to the hospital if symptoms return.
Additional general surgery recommended to be on antibiotic for 7-day will continue on Levaquin 500 milligram daily and metronidazole 500 mg 3 times a day. Antibiotic may cause diarrhea if any happened cannot be handled does not stop need to come
back to the hospital.
Metronidazole may cause metallic taste in the mouth, should go away after completion of antibiotic if any happened
Have a Yogurt daily while on antibiotics.
Referrals:
Mateo Marti DO [Active] - (Within 2 to 3 weeks)
Taran Hair PA-C [Family Provider] -
Bennie Wright MD [Active] - in less than 1 week
Prescriptions:
New
levofloxacin 500 mg tablet
500 mg PO DAILY 7 Days Qty: 7 0RF
metronidazole 500 mg tablet
500 mg PO TID Qty: 20 0RF
Continued
aspirin 81 MG tablet,delayed release (DR/EC)
81 mg PO DAILY
timolol maleate (PF) [Timoptic Ocudose (PF)] 1 EACH dropperette
1 drp BOTH EYES DAILY
losartan 50 mg Tablet
50 mg PO DAILY
atorvastatin 40 mg Tablet
40 mg PO DAILY
metformin 500 mg Tablet
500 mg PO TID
icosapent ethyl 1 gram Capsule
2 g PO BID
brinzolamide 1 % Drops,Suspension
1 drp BOTH EYES TID
bimatoprost 0.03 % Drops
1 drp BOTH EYES QPM
Rhopressa 0.02 % Drops
1 drp BOTH EYES QPM
metoprolol tartrate 25 MG tablet
12.5 mg PO BID Qty: 0 0RF
therapeutic multivitamin Tablet
1 tab PO DAILY
Discharge Orders:
Discharge Patient (As Directed); Ordered 09/13/23
Ordered By: Toshia Madera
Discharge Date and Time
Discharge Date/Time: 09/13/23 14:41
Print Language: HONG KONG[place]
== END 2023-09-13 14:41 | disposition home or self-care (01) | DRG 445 ==
LOC: 4 EAST ACU 16:46
PROVIDERS: Physician Assistant; Radiology Diagnostic Radiology; ADMITTING PHYSICIAN Internal Medicine; ATTENDING PHYSICIAN Internal Medicine; CONSULT PHYSICIAN Nuclear Medicine Nuclear Cardiology; CONSULT PHYSICIAN Surgery; EMERGENCY PHYSICIAN Emergency Medicine; FAMILY PHYSICIAN Physician Assistant Medical
DX: K81.0 Acute cholecystitis (principal); E87.1 Hypo-osmolality and hyponatremia; I5A Non-ischemic myocardial injury (non-traumatic); E11.9 Type 2 diabetes mellitus without complications; I10 Essential (primary) hypertension; I70.0 Atherosclerosis of aorta; F17.200 Nicotine dependence, unspecified, uncomplicated; E78.00 Pure hypercholesterolemia, unspecified; I48.0 Paroxysmal atrial fibrillation; I25.10 Atherosclerotic heart disease of native coronary artery without angina pectoris; I25.2 Old myocardial infarction; Z82.49 Family history of ischemic heart disease and other diseases of the circulatory system; Z81.1 Family history of alcohol abuse and dependence; Z79.82 Long term (current) use of aspirin; Z79.84 Long term (current) use of oral hypoglycemic drugs; Z95.5 Presence of coronary angioplasty implant and graft; Z88.0 Allergy status to penicillin; Z86.73 Personal history of transient ischemic attack (TIA), and cerebral infarction without residual deficits
CPT/HCPCS: 76700; 78226; 80053; 80076; 82962; 83690; 84484; 85025; 85027; 85610; 93005; 93306; 96360; 99285; A9537

== ENCOUNTER → 2023-10-19 11:16 | Outpatient (REF) | payer OTHER, SELFPAY | LOC: DHCBC/DCA 11:16 | PROVIDERS: ATTENDING PHYSICIAN Internal Medicine Cardiovascular Disease; FAMILY PHYSICIAN Physician Assistant Medical | DX: I25.10 Atherosclerotic heart disease of native coronary artery without angina pectoris (principal); Z01.810 Encounter for preprocedural cardiovascular examination; I35.8 Other nonrheumatic aortic valve disorders | CPT/HCPCS: 78452; 93017; A9500; J2785 ==

== ENCOUNTER 2023-10-27 06:02 | Day surgery (SDC) | payer OTHER, SELFPAY ==
[2023-10-27] VITALS (11 sets, daily range): BP systolic 111–144; BP diastolic 66–90; BMI 24.9
[2023-10-27] MEDS: NORMOSOL-R 1000 IV (06:43)
[2023-10-27] MEDS: TYLENOL 1000 MG PO (06:43)
[2023-10-27 06:47] LABS: Glucose - Point of Care 121 mg/dl (70-99)
[2023-10-27 09:37] LABS: Glucose - Point of Care 147 mg/dl (70-99)
== END 2023-10-27 13:45 | disposition home or self-care (01) ==
LOC: SDS 06:02
PROVIDERS: ATTENDING PHYSICIAN Surgery
DX: K80.10 Calculus of gallbladder with chronic cholecystitis without obstruction (principal); K66.0 Peritoneal adhesions (postprocedural) (postinfection)
CPT/HCPCS: 47563; 88304; 74300; 76000; 82962; J1335

== ENCOUNTER → 2024-11-13 12:56 | Outpatient (REF) | payer OTHER, SELFPAY | LOC: RAD 12:56 | PROVIDERS: ATTENDING PHYSICIAN Physician Assistant Medical | DX: R10.30 Lower abdominal pain, unspecified (principal); N43.40 Spermatocele of epididymis, unspecified; R14.0 Abdominal distension (gaseous) | CPT/HCPCS: 74178; 76870; 93976; Q9967 ==